=== PATIENT | female | born 1960 | race Caucasian/White ===

== ENCOUNTER 2016-06-07 16:05 | Emergency (ER) | payer MEDICAID, OTHER ==
[~2016-06-07] VITALS: Ht 175.3 cm; Wt 52.2 kg
[~2016-06-07 16:05] MED LIST: METH40TA13; NOR10T
[2016-06-07 19:05] LABS: Urine Bilirubin Negative (Negative); Urine Color Yellow (Yellow); Urine Glucose Normal (Normal); Urine Nitrite Negative (Negative); Urine RBC 2 /hpf (0 - 4); Urine Squamous Epithelial Cell FEW /hpf (<5); Urine pH 7.5 (5.0-8.0)
[2016-06-07 19:09] LABS: Urine Blood 2+ /uL (Negative); Urine Ketone 3+ (Negative)
[2016-06-07 21:50] LABS: Basophils # (auto) 0 uL; Basophils % (auto) 0.3 % (0.0-2.0); DEFINITIVE VIEW TRANSMISSION; Eosinophils # (auto) 0 uL; Hematocrit 45.8 % (36.0-46.0); Hemoglobin 15.5 g/dL (12.2-16.2); Lymphocytes # (auto) 1.2 uL; Lymphocytes % (auto) 12.5 % (10.0-50.0); Mean Corpuscular Hemoglobin 34.4 pg (28.0-32.0); Mean Corpuscular Hgb Conc. 33.8 g/dL (32.0-36.0); Mean Corpuscular Volume 101.8 fL (80.0-100.0); Mean Platelet Volume 8.6 fL (7.4-10.4); Monocytes # (auto) 1.2 uL; Monocytes % (auto) 12.7 % (0.0-12.0); Neutrophils # (auto) 6.9 uL; Neutrophils % (auto) 74.5 % (37.0-80.0); Platelet Count (auto) 136 10^3/uL (140-450); Red Cell Distribution Width 14.1 % (11.6-16.0); White Blood Cell 9.3 10^3/uL (4.4-10.8)
[2016-06-07 22:17] LABS: Albumin 4.5 g/dL (3.4-5.0); Bilirubin, Total 1.5 mg/dL (0.2-1.0); Calcium 9.5 mg/dL (8.5-10.1); Total Protein 8.7 g/dL (6.4-8.2)
[2016-06-07 22:23] LABS: Potassium 2.9 mmol/L (3.5-5.1)
[2016-06-08] MEDS ORDERED: ONDANSETRON HCL 4 MG/2 ML VIAL ONE (00:32)
[2016-06-08] MEDS ORDERED: SODIUM CHLORIDE 0.9% 1,000 ML IV ONE (00:45)
[2016-06-08] MEDS ORDERED: ONDANSETRON HCL 4 MG/2 ML VIAL IV ONE (00:45)
[2016-06-08] MEDS ORDERED: POTASSIUM CHL 20 Meq TABLET PO ONE (04:15)
[2016-06-08 04:25] VITALS: BP 109/76
== END 2016-06-08 04:27 | disposition home or self-care (01) ==
LOC: ER 16:09
DX: R56.9 Unspecified convulsions (principal); B19.20 Unspecified viral hepatitis C without hepatic coma; F17.210 Nicotine dependence, cigarettes, uncomplicated; F12.10 Cannabis abuse, uncomplicated; R42 Dizziness and giddiness
CPT/HCPCS: 36415; 70450; 80053; 81001; 82962; 83605; 85025; 93005; 96361; 96374; 99285; G0434; J2405; J7030

== ENCOUNTER 2017-03-01 22:33 | Observation (INO) | payer MEDICAID ==
[~2017-03-01] VITALS: Ht 162.6 cm; Wt 63.5 kg
[2017-03-01 23:13] LABS: Eosinophils # (auto) 0 uL; Hematocrit 40.8 % (36.0-46.0); Hemoglobin 14.1 g/dL (12.2-16.2); Mean Corpuscular Volume 104.3 fL (80.0-100.0); Monocytes # (auto) 0.5 uL; Red Blood Cells 3.91 10^6/uL (4.0-5.20); Red Cell Distribution Width 13.9 % (11.8-14.3); White Blood Cell 4.6 10^3/uL (4.4-10.8)
[2017-03-01 23:14] LABS: Basophils # (auto) 0.1 uL; Basophils % (auto) 1.1 % (0.0-2.0); Eosinophils % (auto) 0.2 % (0.0-7.0); Lymphocytes # (auto) 0.8 uL; Lymphocytes % (auto) 16.7 % (10.0-50.0); Mean Corpuscular Hemoglobin 36.2 pg (28.0-32.0); Mean Corpuscular Hgb Conc. 34.7 g/dL (32.0-36.0); Monocytes % (auto) 11.4 % (0.0-12.0); Neutrophils # (auto) 3.2 uL; Neutrophils % (auto) 70.6 % (37.0-80.0); Nucleated Red Blood Cells % 0.3 %; Platelet Count (auto) 161 10^3/uL (140-450)
[2017-03-01 23:26] LABS: INR 1.01 (0.9-1.15); Partial Thromboplastin Time 25.2 sec (22.64-33.71)
[2017-03-01 23:28] LABS: Albumin 4.5 g/dL (3.4-5.0); BUN/Creatinine Ratio 13.5; Calcium 9.3 mg/dL (8.5-10.1); Magnesium 1.5 mg/dL (1.6-2.6); Potassium 3.4 mmol/L (3.5-5.1)
[2017-03-01 23:39] LABS: Phenytoin (Dilantin) < 0.4 ug/mL (10-20); Valproic Acid (Depakene) 4 ug/mL (50-100)
[2017-03-02 00:09] LABS: Total Protein 8.2 g/dL (6.4-8.2)
[2017-03-02] MEDS ORDERED: ONDANSETRON HCL 4 MG/2 ML VIAL ONE (02:08)
[2017-03-02] MEDS ORDERED: ONDANSETRON HCL 4 MG/2 ML VIAL IV ONE ×2 (02:15→07:30)
[2017-03-02 04:56] LABS: Alcohol, Urine < 3.0 mg/dL (0-5); Amphetamine Screen, Urine NEGATIVE (NEGATIVE); Barbiturate Scree,Urine NEGATIVE (NEGATIVE); Benzodiazephine Screen, Urine NEGATIVE (NEGATIVE); Cannabinoid Screen, Urine POSITIVE (NEGATIVE); Cocaine Screen, Urine NEGATIVE (NEGATIVE); Opiate Scree,Urine NEGATIVE (NEGATIVE); Phencyclidine Screen, Urine NEGATIVE (NEGATIVE)
[2017-03-02 07:40] VITALS: BP 149/82
[2017-03-02] MEDS ORDERED: ACETAMINOPHEN 500 MG TAB PO ONE (07:45)
[2017-03-02] MEDS ORDERED: POTASSIUM CHL 10% (20 MEQ/15ML) 15ml ORAL SOLN PO ONE (08:30)
== END 2017-03-02 08:49 | disposition home or self-care (01) | DRG 53 ==
LOC: EDBD 22:33 → ER 22:37 → OVERFLOW 22:51 → ER 03-02 08:49
PROVIDERS: ADMIT Emergency Medicine; ATTEND Emergency Medicine
DX: R56.9 Unspecified convulsions (principal); D89.9 Disorder involving the immune mechanism, unspecified; E72.51 Non-ketotic hyperglycinemia; E83.42 Hypomagnesemia; E87.6 Hypokalemia; F17.210 Nicotine dependence, cigarettes, uncomplicated; F12.10 Cannabis abuse, uncomplicated; Z82.49 Family history of ischemic heart disease and other diseases of the circulatory system
CPT/HCPCS: 36415; 70450; 80053; 80164; 80185; 80307; 80320; 83735; 85025; 85610; 85730; 93005; 96374; 96376; 99285; G0378; J2405

== ENCOUNTER 2017-11-27 08:35 | Emergency (ER) | payer MEDICAID ==
[~2017-11-27] VITALS: Ht 175.3 cm; Wt 59.0 kg
[2017-11-27] MEDS ORDERED: LORazepam 0.5 MG TAB PO ONE (08:45)
[2017-11-27] MEDS ORDERED: METHADONE HCL 10 MG TAB PO ONE (08:45)
[2017-11-27 09:33] VITALS: BP 127/87
[2017-11-27 10:04] LABS: Basophils # (auto) 0 uL; Basophils % (auto) 0.3 % (0.0-2.0); Eosinophils # (auto) 0 uL; Hemoglobin 14.4 g/dL (12.2-16.2); Mean Corpuscular Hgb Conc. 33.7 g/dL (32.0-36.0); Monocytes # (auto) 0.3 uL; Nucleated Red Blood Cells % 0.1 %; Platelet Count (auto) 146 10^3/uL (140-450)
[2017-11-27 10:06] LABS: Hematocrit 42.6 % (36.0-46.0); Lymphocytes # (auto) 0.5 uL; Mean Corpuscular Hemoglobin 35.2 pg (28.0-32.0); Mean Corpuscular Volume 104.3 fL (80.0-100.0); Neutrophils # (auto) 4.3 uL; Neutrophils % (auto) 84.7 % (37.0-80.0); Red Blood Cells 4.08 10^6/uL (4.0-5.20); Red Cell Distribution Width 13.9 % (11.8-14.3)
[2017-11-27 10:27] LABS: Albumin 4.4 g/dL (3.4-5.0); BUN/Creatinine Ratio 18.4; Bilirubin, Total 0.9 mg/dL (0.2-1.0); Calcium 9.2 mg/dL (8.5-10.1); Potassium 3.1 mmol/L (3.5-5.1); Total Protein 8.3 g/dL (6.4-8.2)
[2017-11-27] MEDS ORDERED: POTASSIUM EFFERVESENT TAB 25 MEQ PO ONE (11:45)
== END 2017-11-27 12:54 | disposition home or self-care (01) ==
LOC: ER 08:35 → EDBD 08:35 → ER 12:54
DX: R56.9 Unspecified convulsions (principal); F17.210 Nicotine dependence, cigarettes, uncomplicated
CPT/HCPCS: 36415; 70450; 80053; 85025; 94761; 99285; J7030

== ENCOUNTER 2018-02-26 09:46 | Emergency (ER) | payer MEDICAID ==
[~2018-02-26] VITALS: Ht 175.3 cm; Wt 52.2 kg
[2018-02-26 09:48] VITALS: BP 134/81
== END 2018-02-26 11:12 | disposition home or self-care (01) ==
LOC: ER 09:46
DX: S61.501D Unspecified open wound of right wrist, subsequent encounter (principal); F17.210 Nicotine dependence, cigarettes, uncomplicated; Z88.2 Allergy status to sulfonamides; Z79.899 Other long term (current) drug therapy; Z90.49 Acquired absence of other specified parts of digestive tract; X58.XXXD Exposure to other specified factors, subsequent encounter

== ENCOUNTER 2018-03-21 17:28 | Emergency (ER) | payer MEDICAID ==
[~2018-03-21] VITALS: Ht 170.2 cm; Wt 54.4 kg
[2018-03-21 18:23] LABS: Basophils # (auto) 0 uL; Basophils % (auto) 0.5 % (0.0-2.0); Eosinophils # (auto) 0 uL; Hemoglobin 15.4 g/dL (12.2-16.2); Lymphocytes # (auto) 0.4 uL; Monocytes # (auto) 0.4 uL; Neutrophils # (auto) 4.5 uL; Nucleated Red Blood Cells % 0.1 %
[2018-03-21 18:25] LABS: Lymphocytes % (auto) 7.7 % (10.0-50.0); Mean Corpuscular Hemoglobin 36.6 pg (28.0-32.0); Mean Corpuscular Hgb Conc. 34.2 g/dL (32.0-36.0); Mean Corpuscular Volume 106.8 fL (80.0-100.0); Monocytes % (auto) 7.2 % (0.0-12.0); Neutrophils % (auto) 84.6 % (37.0-80.0); Platelet Count (auto) 131 10^3/uL (140-450); Red Blood Cells 4.21 10^6/uL (4.0-5.20); Red Cell Distribution Width 14.8 % (11.8-14.3); White Blood Cell 5.3 10^3/uL (4.4-10.8)
[2018-03-21 18:38] LABS: Albumin 4.4 g/dL (3.4-5.0); Potassium 3.1 mmol/L (3.5-5.1)
[2018-03-21 18:43] LABS: BUN/Creatinine Ratio 16.7; Bilirubin, Total 1.1 mg/dL (0.2-1.0); Total Protein 7.7 g/dL (6.4-8.2)
[2018-03-21] MEDS ORDERED: POTASSIUM CHL 20 Meq TABLET PO ONE (19:45)
[2018-03-21] MEDS ORDERED: ACETAMINOPHEN 325 MG TAB PO ONE (19:45)
[2018-03-21 21:01] VITALS: BP 137/55
== END 2018-03-21 21:40 | disposition home or self-care (01) ==
LOC: EDBD 17:28 → ER 17:28
DX: R56.9 Unspecified convulsions (principal); R94.5 Abnormal results of liver function studies; F17.210 Nicotine dependence, cigarettes, uncomplicated; F12.10 Cannabis abuse, uncomplicated; Z90.89 Acquired absence of other organs
CPT/HCPCS: 36415; 70450; 71045; 80053; 85025; 93005; 94761

== ENCOUNTER 2018-05-20 19:06 | Emergency (ER) | payer MEDICAID ==
[~2018-05-20] VITALS: Ht 167.6 cm; Wt 59.9 kg
[2018-05-20] MEDS ORDERED: SODIUM CHLORIDE 0.9% 1,000 ML IVB ONE (19:26)
[2018-05-20] MEDS ORDERED: LORazepam 2MG/ML-1ML VIAL IV ONE (21:45)
[2018-05-20] MEDS ORDERED: MULTIPLE VITAMIN 10 ML, MAGNESIUM SULF SDV 50% 8 MEQ in SODIUM CHLORIDE 0.9% 1,000 ML IV ONE (21:45)
[2018-05-20 22:14] VITALS: BP 112/75
[2018-05-20 22:26] LABS: Mean Corpuscular Hemoglobin 35.7 pg (28.0-32.0)
[2018-05-20 22:28] LABS: Hematocrit 44.7 % (36.0-46.0); Hemoglobin 15.2 g/dL (12.2-16.2); Mean Corpuscular Volume 105.1 fL (80.0-100.0); Platelet Count (auto) 259 10^3/uL (140-450); Red Blood Cells 4.26 10^6/uL (4.0-5.20); White Blood Cell 6.7 10^3/uL (4.4-10.8)
[2018-05-20 22:34] LABS: Band Neutrophils % (manual) 0; Basophils % (manual) 0 (0.0-2.0); Blast Cells 0; Metamyelocytes % 0; Myelocytes % 0; Promyelocytes % 0; Reactive Lymphocytes 0
[2018-05-20 22:43] LABS: Calcium 8.8 mg/dL (8.5-10.1); Potassium 3.5 mmol/L (3.5-5.1)
[2018-05-20 22:46] LABS: BUN/Creatinine Ratio 19.7; Bilirubin, Total 0.3 mg/dL (0.2-1.0)
[2018-05-20 23:44] LABS: Eosinophils % (manual) 2 (0-7); Lymphocytes % (manual) 58 (10.0-50.0); Monocytes % (manual) 9 (0-12)
== END 2018-05-21 01:22 | disposition home or self-care (01) ==
LOC: EDBD 19:06 → ER 19:09
DX: F10.129 Alcohol abuse with intoxication, unspecified (principal); F17.210 Nicotine dependence, cigarettes, uncomplicated; Z88.2 Allergy status to sulfonamides; Y90.9 Presence of alcohol in blood, level not specified
CPT/HCPCS: 36415; 80053; 80320; 85007; 85027; 96365; 96366; 96375; 99283; J2060; J3475; J7030

== ENCOUNTER 2018-11-10 10:05 | Emergency (ER) | payer MEDICAID ==
[~2018-11-10] VITALS: Ht 167.6 cm; Wt 63.5 kg
[2018-11-10 10:43] LABS: Hematocrit 39.4 % (36.0-46.0); Hemoglobin 13.4 g/dL (12.2-16.2); Red Cell Distribution Width 14.9 % (11.8-14.3)
[2018-11-10 10:45] LABS: Mean Corpuscular Hemoglobin 34.4 pg (28.0-32.0); Platelet Count (auto) 211 10^3/uL (140-450); White Blood Cell 5.5 10^3/uL (4.4-10.8)
[2018-11-10 10:51] LABS: Band Neutrophils % (manual) 0
[2018-11-10 10:53] LABS: Basophils % (manual) 0 (0.0-2.0); Blast Cells 0; Metamyelocytes % 0; Myelocytes % 0; Promyelocytes % 0
[2018-11-10 11:01] LABS: Albumin 4.9 g/dL (3.4-5.0); BUN/Creatinine Ratio 18.9; Calcium 8.9 mg/dL (8.5-10.1); Potassium 3.4 mmol/L (3.5-5.1)
[2018-11-10 11:05] LABS: Bilirubin, Total 0.4 mg/dL (0.2-1.0); Total Protein 8.4 g/dL (6.4-8.2)
[2018-11-10] MEDS ORDERED: LORazepam 2MG/ML-1ML VIAL IV ONE (11:15)
[2018-11-10 11:30] LABS: Amphetamine Screen, Urine NEGATIVE (NEGATIVE); Barbiturate Scree,Urine NEGATIVE (NEGATIVE); Benzodiazephine Screen, Urine NEGATIVE (NEGATIVE); Cannabinoid Screen, Urine POSITIVE (NEGATIVE); Cocaine Screen, Urine NEGATIVE (NEGATIVE); Opiate Scree,Urine NEGATIVE (NEGATIVE); Phencyclidine Screen, Urine NEGATIVE (NEGATIVE)
[2018-11-10 11:40] LABS: Urine Bacteria FEW /hpf (None Seen); Urine Blood Negative /uL (Negative); Urine Mucus FEW (None Seen); Urine Specific Gravity 1.013 (1.001-1.035); Urine WBC 13 /hpf (0 - 5)
[2018-11-10] MEDS ORDERED: SODIUM CHLORIDE 0.9% 1,000 ML IV ONE ×2 (12:12)
[2018-11-10] MEDS ORDERED: POTASSIUM EFFERVESENT TAB 25 MEQ PO ONE (12:15)
[2018-11-10] MEDS ORDERED: THIAMINE 100mg/ml INJ (200mg/2ml VIAL) IV ONE (12:15)
[2018-11-10 13:37] VITALS: BP 113/66
[2018-11-10 13:41] LABS: Lymphocytes % (manual) 57 (10.0-50.0)
[2018-11-10 13:42] LABS: Eosinophils % (manual) 3 (0-7); Monocytes % (manual) 7 (0-12); Reactive Lymphocytes 5
== END 2018-11-10 15:24 | disposition home or self-care (01) ==
LOC: ER 10:05 → EDBD 10:05 → ER 15:24
DX: F11.988 Opioid use, unspecified with other opioid-induced disorder (principal); F10.129 Alcohol abuse with intoxication, unspecified; N39.0 Urinary tract infection, site not specified; J44.9 Chronic obstructive pulmonary disease, unspecified; F17.210 Nicotine dependence, cigarettes, uncomplicated; F12.90 Cannabis use, unspecified, uncomplicated; Z88.2 Allergy status to sulfonamides; Z79.899 Other long term (current) drug therapy; Z90.49 Acquired absence of other specified parts of digestive tract
CPT/HCPCS: 36415; 71045; 80053; 80307; 81001; 85007; 85027; 93005; 96374; 96375; 99284; J2060; J3411; J7030

== ENCOUNTER 2020-08-11 14:44 | Emergency (ER) | payer MEDICAID ==
[~2020-08-11] VITALS: Ht 177.8 cm; Wt 52.2 kg
[~2020-08-11 14:44] MED LIST changes: +ACET500T48 PO; +ENO40SY SC; +FOLI1TAB6 PO; +HYDR-4072 PO; -NOR10T; +THIA100T10 PO
[2020-08-11] MEDS ORDERED: SODIUM CHLORIDE 0.9% 1,000 ML IV ONE (15:15)
[2020-08-11 16:03] LABS: Basophils # (auto) 0 10 ^3/uL (0-0.2); Eosinophils # (auto) 0 10 ^3/uL (0-0.8); Hematocrit 34.8 % (36.0-46.0); Hemoglobin 12.4 g/dL (12.2-16.2); Lymphocytes # (auto) 0.4 10 ^3/uL (0.4-5.4); Monocytes # (auto) 0.4 10 ^3/uL (0-1.3); Neutrophils # (auto) 5.7 10 ^3/uL (1.6-8.6); White Blood Cell 6.5 10^3/uL (4.4-10.8)
[2020-08-11 16:05] LABS: Basophils % (auto) 0.2 % (0.0-2.0); Lymphocytes % (auto) 5.5 % (10.0-50.0); Mean Corpuscular Hemoglobin 36.8 pg (28.0-32.0); Mean Corpuscular Hgb Conc. 35.6 g/dL (32.0-36.0); Mean Corpuscular Volume 103.4 fL (80.0-100.0); Neutrophils % (auto) 88.3 % (37.0-80.0); Platelet Count (auto) 135 10^3/uL (140-450); Red Blood Cells 3.37 10^6/uL (4.0-5.20); Red Cell Distribution Width 15.2 % (11.8-14.3)
[2020-08-11 16:16] VITALS: BP 131/75
[2020-08-11 16:18] LABS: Albumin 4.1 g/dL (3.4-5.0); Anion Gap 11 (5-15); Blood Urea Nitrogen 13 mg/dL (7-18); Calcium 8.8 mg/dL (8.5-10.1); Carbon Dioxide 26 mmol/L (21-32); Chloride 97 mmol/L (98-107); Glucose 159 mg/dL (74-106); Potassium 3.4 mmol/L (3.5-5.1); Sodium 134 mmol/L (136-145)
[2020-08-11 16:22] LABS: Alanine Aminotransferase 65 U/L (13-56); Alkaline Phosphatase 63 U/L (45-117); Aspartate Aminotransferase 95 U/L (15-37); BUN/Creatinine Ratio 23.6; Bilirubin, Total 0.8 mg/dL (0.2-1.0); GFR African American 145 mL/min; GFR Non-African American 120 mL/min; Total Protein 7.1 g/dL (6.4-8.2)
[2020-08-11 18:00] LABS: Urine Bacteria FEW /hpf (None Seen); Urine Blood Negative /uL (Negative); Urine Hyaline Cast FEW /lpf (0 - 2); Urine Mucus FEW (None Seen); Urine Specific Gravity 1.018 (1.001-1.035)
[2020-08-11 18:04] LABS: Urine WBC None Seen /hpf (0 - 5)
== END 2020-08-11 18:41 | disposition home or self-care (01) ==
LOC: EDBD 14:44 → ER 14:44
DX: R73.9 Hyperglycemia, unspecified (principal); F19.90 Other psychoactive substance use, unspecified, uncomplicated; F17.210 Nicotine dependence, cigarettes, uncomplicated; Z90.49 Acquired absence of other specified parts of digestive tract
CPT/HCPCS: 36415; 70450; 80053; 81001; 84484; 85025; 93005; 96360; 96361; 99285; J7030

== ENCOUNTER 2021-08-15 20:10 | Emergency (ER) | payer MEDICAID ==
[~2021-08-15] VITALS: Ht 165.1 cm; Wt 54.4 kg
[2021-08-15 20:27] VITALS: BP 125/76
== END 2021-08-15 20:59 | disposition home or self-care (01) ==
LOC: EDBD 20:10 → EDUNIT# 20:10 → ER 20:12
DX: M25.561 Pain in right knee (principal); J44.9 Chronic obstructive pulmonary disease, unspecified; F12.10 Cannabis abuse, uncomplicated; R64 Cachexia; I10 Essential (primary) hypertension; F17.210 Nicotine dependence, cigarettes, uncomplicated; Z68.20 Body mass index [BMI] 20.0-20.9, adult; Z88.2 Allergy status to sulfonamides

== ENCOUNTER 2021-08-24 08:10 | Emergency (ER) | payer MEDICAID ==
[~2021-08-24] VITALS: Ht 167.6 cm; Wt 47.6 kg
[2021-08-24] MEDS ORDERED: ONDANSETRON ODT 4 MG TAB PO ONE (08:15)
[2021-08-24] MEDS ORDERED: IBUPROFEN 600 MG TAB PO ONE (08:15)
[2021-08-24] MEDS ORDERED: ONDA-144 PO (08:56)
[2021-08-24 09:28] VITALS: BP 117/51
== END 2021-08-24 09:29 | disposition home or self-care (01) ==
LOC: EDUNIT# 08:10 → ER 08:10 → EDBD 08:10 → ER 09:29
DX: M79.10 Myalgia, unspecified site (principal); R94.31 Abnormal electrocardiogram [ECG] [EKG]
CPT/HCPCS: 93005; 99283; Q0162

== ENCOUNTER 2021-08-25 16:01 | Emergency (ER) | payer MEDICAID ==
[~2021-08-25] VITALS: Ht 175.3 cm; Wt 45.4 kg
[~2021-08-25 16:01] MED LIST changes: +ONDA-144 PO
[2021-08-25 16:19] VITALS: BP 134/76
[2021-08-25] MEDS ORDERED: LORazepam 2MG/ML-1ML VIAL IV ONE (16:30)
[2021-08-25] MEDS ORDERED: KETOROLAC TROMETH 30 MG/ML 1ML VIAL IV ONE (16:30)
[2021-08-25 16:49] LABS: Basophils # (auto) 0.1 10 ^3/uL (0-0.2); Basophils % (auto) 1.3 % (0.0-2.0); Eosinophils # (auto) 0.1 10 ^3/uL (0-0.8); Eosinophils % (auto) 1.6 % (0.0-7.0); Hemoglobin 12.4 g/dL (12.2-16.2); Lymphocytes # (auto) 1.8 10 ^3/uL (0.4-5.4); Lymphocytes % (auto) 34.8 % (10.0-50.0); Mean Corpuscular Hemoglobin 38.1 pg (28.0-32.0); Mean Corpuscular Hgb Conc. 35.3 g/dL (32.0-36.0); Mean Corpuscular Volume 107.8 fL (80.0-100.0); Monocytes # (auto) 0.7 10 ^3/uL (0-1.3); Monocytes % (auto) 12.4 % (0.0-12.0); Neutrophils # (auto) 2.6 10 ^3/uL (1.6-8.6); Neutrophils % (auto) 49.9 % (37.0-80.0); Nucleated Red Blood Cells % 0.3 %; Red Blood Cells 3.25 10^6/uL (4.0-5.20); Red Cell Distribution Width 12.7 % (11.8-14.3); White Blood Cell 5.3 10^3/uL (4.4-10.8)
[2021-08-25 17:09] LABS: Albumin 4.5 g/dL (3.4-5.0); BUN/Creatinine Ratio 21.2; Calcium 8.7 mg/dL (8.5-10.1); Potassium 3.6 mmol/L (3.5-5.1)
[2021-08-25 17:10] LABS: INR 1.02 (0.9-1.15); Partial Thromboplastin Time 25.2 sec (23.6-33.0)
[2021-08-25 17:14] LABS: Bilirubin, Total 0.5 mg/dL (0.2-1.0); Total Protein 8.3 g/dL (6.4-8.2)
== END 2021-08-25 23:47 | disposition left against medical advice (07) ==
LOC: EDBD 16:01 → ER 16:01
DX: S93.602A Unspecified sprain of left foot, initial encounter (principal); F10.10 Alcohol abuse, uncomplicated; I10 Essential (primary) hypertension; E11.9 Type 2 diabetes mellitus without complications; J44.9 Chronic obstructive pulmonary disease, unspecified; F17.210 Nicotine dependence, cigarettes, uncomplicated; Z90.49 Acquired absence of other specified parts of digestive tract; Z79.899 Other long term (current) drug therapy; Z88.2 Allergy status to sulfonamides; X58.XXXA Exposure to other specified factors, initial encounter; Y93.89 Activity, other specified; Y92.89 Other specified places as the place of occurrence of the external cause; Y99.8 Other external cause status; Y90.8 Blood alcohol level of 240 mg/100 ml or more
CPT/HCPCS: 36415; 71045; 73630; 80053; 80320; 83880; 84484; 85025; 85610; 85730

== ENCOUNTER 2021-09-11 17:51 | Inpatient (IN) | payer MEDICAID ==
[~2021-09-11] VITALS: Ht 157.5 cm; Wt 61.2 kg
[2021-09-11] MEDS ORDERED: NOREPINEPHRINE 8 MG/250ML KIT 250 ML IV ONE (18:42)
[2021-09-11] MEDS: NOREPINEPHRINE 8 MG/250ML KIT 250 ML IV SCH ×3 (18:49→22:02)
[2021-09-11 19:10] LABS: Hematocrit 23.9 % (36.0-46.0); Mean Corpuscular Hemoglobin 36.4 pg (28.0-32.0); Mean Corpuscular Hgb Conc. 33.6 g/dL (32.0-36.0); Mean Corpuscular Volume 108.4 fL (80.0-100.0); Red Blood Cells 2.21 10^6/uL (4.0-5.20); White Blood Cell 6.9 10^3/uL (4.4-10.8)
[2021-09-11 19:15] LABS: Band Neutrophils % (manual) 0; Basophils % (manual) 0 (0.0-2.0); Blast Cells 0; Eosinophils % (manual) 0 (0-7); Metamyelocytes % 0; Myelocytes % 0; Promyelocytes % 0; Reactive Lymphocytes 0
[2021-09-11 19:21] LABS: Calcium 7.5 mg/dL (8.5-10.1)
[2021-09-11 19:27] LABS: Albumin 3.1 g/dL (3.4-5.0); BUN/Creatinine Ratio 16.4; Bilirubin, Total 1.2 mg/dL (0.2-1.0); Magnesium 2.1 mg/dL (1.6-2.6); Total Protein 6.8 g/dL (6.4-8.2)
[2021-09-11] MEDS ORDERED: THIAMINE 100mg/ml INJ (200mg/2ml VIAL) IV ONE (19:30)
[2021-09-11] MEDS ORDERED: SODIUM CHLORIDE 0.9% 1,000 ML IV ONE ×2 (19:30)
[2021-09-11 19:57] LABS: Lymphocytes % (manual) 10 (10.0-50.0); Monocytes % (manual) 18 (0-12)
[2021-09-11] MEDS: SODIUM CHLORIDE 0.9% 1,000 ML IV SCH (22:03)
[2021-09-11 22:40] LABS: Urine Bacteria FEW /hpf (None Seen); Urine Blood 3+ /uL (Negative); Urine Hyaline Cast MOD /lpf (0 - 2); Urine Mucus FEW (None Seen); Urine Specific Gravity 1.014 (1.001-1.035); Urine WBC 1 /hpf (0 - 5)
[2021-09-11 22:47] LABS: Amphetamine Screen, Urine NEGATIVE (NEGATIVE); Barbiturate Scree,Urine NEGATIVE (NEGATIVE); Benzodiazephine Screen, Urine NEGATIVE (NEGATIVE); Cannabinoid Screen, Urine POSITIVE (NEGATIVE); Cocaine Screen, Urine NEGATIVE (NEGATIVE); Opiate Scree,Urine POSITIVE (NEGATIVE)
[2021-09-11 22:55] LABS: Phencyclidine Screen, Urine NEGATIVE (NEGATIVE)
[2021-09-12 05:45] VITALS: BP 117/63
[2021-09-12 06:06] LABS: Hematocrit 24.2 % (36.0-46.0); Hemoglobin 8.3 g/dL (12.2-16.2); Red Cell Distribution Width 12.9 % (11.8-14.3)
[2021-09-12] MEDS: SODIUM CHLORIDE 0.9% 1,000 ML IV SCH ×2 (06:07→17:52)
[2021-09-12 06:09] LABS: Mean Corpuscular Hemoglobin 36.6 pg (28.0-32.0); Mean Corpuscular Hgb Conc. 34.3 g/dL (32.0-36.0); Mean Corpuscular Volume 106.8 fL (80.0-100.0); Red Blood Cells 2.27 10^6/uL (4.0-5.20); White Blood Cell 6.3 10^3/uL (4.4-10.8)
[2021-09-12 06:13] LABS: Band Neutrophils % (manual) 0; Basophils % (manual) 0 (0.0-2.0); Blast Cells 0; Eosinophils % (manual) 0 (0-7); Metamyelocytes % 0; Promyelocytes % 0; Reactive Lymphocytes 0
[2021-09-12 06:21] LABS: Potassium 3.3 mmol/L (3.5-5.1)
[2021-09-12 06:29] LABS: Albumin 3.2 g/dL (3.4-5.0); BUN/Creatinine Ratio 29.3; Bilirubin, Total 1.7 mg/dL (0.2-1.0); Calcium 8.1 mg/dL (8.5-10.1); Total Protein 7.2 g/dL (6.4-8.2)
[2021-09-12 08:17] LABS: Lymphocytes % (manual) 9 (10.0-50.0); Monocytes % (manual) 17 (0-12); Myelocytes % 1
[2021-09-12] MEDS ORDERED: ENOXAPARIN SOD 30 MG/0.3 ML SYRINGE SC SCH (10:00)
[2021-09-12] MEDS ORDERED: FOLIC ACID 1 MG, MULTIPLE VITAMIN 10 ML, THIAMINE INJ 100 MG in D5W/SOD CHL 0.45% 1,000 ML INJ SCH (12:00)
[2021-09-13] MEDS ORDERED: PANTOPRAZOLE 40 MG/10 ML VIAL INJ IV SCH (10:00)
== END 2021-09-12 19:12 | disposition left against medical advice (07) | DRG 207 ==
LOC: ER 17:51 → EDBD 17:51 → TELE 21:43
PROVIDERS: ADMIT Internal Medicine; ATTEND Nurse Practitioner
DX: I95.9 Hypotension, unspecified (principal); N17.0 Acute kidney failure with tubular necrosis; G92.8 Other toxic encephalopathy; D63.8 Anemia in other chronic diseases classified elsewhere; F10.10 Alcohol abuse, uncomplicated; Z53.29 Procedure and treatment not carried out because of patient's decision for other reasons; Z20.822 Contact with and (suspected) exposure to COVID-19; I10 Essential (primary) hypertension; F17.210 Nicotine dependence, cigarettes, uncomplicated; E11.9 Type 2 diabetes mellitus without complications; E87.6 Hypokalemia; J44.9 Chronic obstructive pulmonary disease, unspecified; Z88.2 Allergy status to sulfonamides; Z88.8 Allergy status to other drugs, medicaments and biological substances; Z90.49 Acquired absence of other specified parts of digestive tract; Z86.19 Personal history of other infectious and parasitic diseases
CPT/HCPCS: 36415; 70450; 71045; 80053; 80307; 80320; 81001; 82140; 83735; 84484; 85007; 85027; 93005; 93306; 96361; 96365; 96375; 99291; G0378

== ENCOUNTER 2021-11-05 11:33 | Emergency (ER) | payer MEDICAID ==
[~2021-11-05] VITALS: Ht 175.3 cm; Wt 61.0 kg
[2021-11-05] MEDS ORDERED: HYDROmorphone HCL 2 MG/ML VL/or syr IV ONE (13:30)
[2021-11-05 14:00] VITALS: BP 118/80
[2021-11-05] MEDS ORDERED: HYDROmorphone HCL 2 MG/ML VL/or syr IM ONE (14:45)
== END 2021-11-05 15:08 | disposition left against medical advice (07) ==
LOC: ER 11:33 → EDBD 11:33 → ER 15:08
DX: M25.511 Pain in right shoulder (principal); E11.9 Type 2 diabetes mellitus without complications; I10 Essential (primary) hypertension; J44.9 Chronic obstructive pulmonary disease, unspecified; F17.210 Nicotine dependence, cigarettes, uncomplicated; Z90.89 Acquired absence of other organs; Z88.2 Allergy status to sulfonamides; Z53.29 Procedure and treatment not carried out because of patient's decision for other reasons; W19.XXXA Unspecified fall, initial encounter; Y93.89 Activity, other specified; Y92.89 Other specified places as the place of occurrence of the external cause; Y99.8 Other external cause status
CPT/HCPCS: 73200; 73700; 96372; 99284; J1170

== ENCOUNTER 2021-12-27 02:01 | Inpatient (IN) | payer MEDICAID ==
[~2021-12-27] VITALS: Ht 165.1 cm; Wt 52.0 kg
[2021-12-27 04:54] LABS: Eosinophils # (auto) 0.1 10 ^3/uL (0-0.8); Lymphocytes # (auto) 2.2 10 ^3/uL (0.4-5.4); Neutrophils # (auto) 1.3 10 ^3/uL (1.6-8.6); Nucleated Red Blood Cells % 0.1 %
[2021-12-27 04:56] LABS: Basophils # (auto) 0 10 ^3/uL (0-0.2); Basophils % (auto) 1.1 % (0.0-2.0); Hematocrit 37.9 % (36.0-46.0); Hemoglobin 13.3 g/dL (12.2-16.2); Lymphocytes % (auto) 53.5 % (10.0-50.0); Mean Corpuscular Hemoglobin 38.1 pg (28.0-32.0); Mean Corpuscular Hgb Conc. 35.1 g/dL (32.0-36.0); Mean Corpuscular Volume 108.7 fL (80.0-100.0); Monocytes # (auto) 0.5 10 ^3/uL (0-1.3); Monocytes % (auto) 11.1 % (0.0-12.0); Neutrophils % (auto) 31.3 % (37.0-80.0); Red Blood Cells 3.48 10^6/uL (4.0-5.20); Red Cell Distribution Width 13.7 % (11.8-14.3); White Blood Cell 4.1 10^3/uL (4.4-10.8)
[2021-12-27 05:12] LABS: Salicylate 3.3 mg/dL (2.8-20.0)
[2021-12-27 05:14] LABS: Albumin 4.1 g/dL (3.4-5.0); Calcium 8.9 mg/dL (8.5-10.1); Potassium 3.7 mmol/L (3.5-5.1)
[2021-12-27 05:17] LABS: BUN/Creatinine Ratio 18.4; Magnesium 1.7 mg/dL (1.6-2.6)
[2021-12-27 05:37] LABS: Bilirubin, Total 0.3 mg/dL (0.2-1.0); Total Protein 7.8 g/dL (6.4-8.2)
[2021-12-27 05:53] LABS: Acetaminophen < 2.0 ug/mL (10-30)
[2021-12-27 06:21] LABS: INR 0.99 (0.9-1.15); Partial Thromboplastin Time 24.8 sec (24.6-33.4)
[2021-12-27] MEDS ORDERED: LORazepam 2MG/ML-1ML VIAL ONE (19:24)
[2021-12-27 20:03] LABS: Basophils # (auto) 0.1 10 ^3/uL (0-0.2); Basophils % (auto) 0.9 % (0.0-2.0); Eosinophils # (auto) 0 10 ^3/uL (0-0.8); Eosinophils % (auto) 0.2 % (0.0-7.0); Neutrophils # (auto) 3.3 10 ^3/uL (1.6-8.6); Nucleated Red Blood Cells % 0.2 %; Red Cell Distribution Width 13.8 % (11.8-14.3)
[2021-12-27 20:05] LABS: Hematocrit 39.9 % (36.0-46.0); Mean Corpuscular Hemoglobin 36.7 pg (28.0-32.0); Mean Corpuscular Hgb Conc. 32.7 g/dL (32.0-36.0); Mean Corpuscular Volume 112.4 fL (80.0-100.0); Monocytes % (auto) 13.8 % (0.0-12.0); Neutrophils % (auto) 45.1 % (37.0-80.0); Red Blood Cells 3.55 10^6/uL (4.0-5.20); White Blood Cell 7.4 10^3/uL (4.4-10.8)
[2021-12-27 20:16] LABS: Albumin 4.5 g/dL (3.4-5.0); BUN/Creatinine Ratio 14.5; Calcium 9.5 mg/dL (8.5-10.1); Potassium 3.6 mmol/L (3.5-5.1)
[2021-12-27 20:19] LABS: Bilirubin, Total 0.6 mg/dL (0.2-1.0); Total Protein 8.5 g/dL (6.4-8.2)
[2021-12-27] MEDS ORDERED: LORazepam 2MG/ML-1ML VIAL IM ONE (20:30)
[2021-12-27] MEDS ORDERED: LORazepam 2MG/ML-1ML VIAL IV PRN (23:15)
[2021-12-27] MEDS ORDERED: chlordiazePOXIDE HCL 25 MG CAP PO PRN (23:15)
[2021-12-27] MEDS ORDERED: PANTOPRAZOLE 40 MG/10 ML VIAL INJ IV ONE (23:15)
[2021-12-27] MEDS ORDERED: ONDANSETRON HCL 4 MG/2 ML VIAL IV PRN (23:15)
[2021-12-28] MEDS: SODIUM CHLORIDE 0.9% 1,000 ML IV SCH ×2 (00:09→09:17)
[2021-12-28 04:24] LABS: Basophils # (auto) 0 10 ^3/uL (0-0.2); Basophils % (auto) 0.6 % (0.0-2.0); Eosinophils # (auto) 0 10 ^3/uL (0-0.8); Lymphocytes # (auto) 1.3 10 ^3/uL (0.4-5.4); Neutrophils # (auto) 5.4 10 ^3/uL (1.6-8.6); Red Cell Distribution Width 13.6 % (11.8-14.3); White Blood Cell 7.6 10^3/uL (4.4-10.8)
[2021-12-28 04:26] LABS: Eosinophils % (auto) 0.4 % (0.0-7.0); Hemoglobin 12.9 g/dL (12.2-16.2); Lymphocytes % (auto) 17.1 % (10.0-50.0); Mean Corpuscular Hemoglobin 36.9 pg (28.0-32.0); Mean Corpuscular Volume 108.4 fL (80.0-100.0); Monocytes # (auto) 0.8 10 ^3/uL (0-1.3); Monocytes % (auto) 10.7 % (0.0-12.0); Neutrophils % (auto) 71.2 % (37.0-80.0); Nucleated Red Blood Cells % 0.2 %
[2021-12-28 04:38] LABS: Albumin 4.3 g/dL (3.4-5.0); Calcium 9.3 mg/dL (8.5-10.1); Potassium 3.4 mmol/L (3.5-5.1)
[2021-12-28 04:44] LABS: Bilirubin, Total 0.8 mg/dL (0.2-1.0); Total Protein 7.5 g/dL (6.4-8.2)
[2021-12-28] MEDS ORDERED: PANTOPRAZOLE 40 MG/10 ML VIAL INJ IV SCH (10:00)
[2021-12-28] MEDS ORDERED: ENOXAPARIN SOD 40 MG/0.4 ML SYRINGE SC SCH (10:00)
[2021-12-28] MEDS ORDERED: NICOTINE 14 MG/24HR TOPICAL PATCH TD ONE (11:45)
[2021-12-28] MEDS ORDERED: FOLIC ACID 1 MG, MULTIPLE VITAMIN 10 ML, MAGNESIUM SULF SDV 50% 8 MEQ, THIAMINE INJ 100... INJ SCH ×5 (12:00)
[2021-12-28 12:15] VITALS: BP 131/84
== END 2021-12-28 13:15 | disposition left against medical advice (07) | DRG 770 ==
LOC: EDUNIT# 02:01 → EDBD 02:01 → ER 02:04 → OVERFLOW 23:22
PROVIDERS: ADMIT Nurse Practitioner Family; ATTEND Hospitalist
DX: F10.229 Alcohol dependence with intoxication, unspecified (principal); R45.851 Suicidal ideations; R56.9 Unspecified convulsions; Z91.199 Patient's noncompliance with other medical treatment and regimen due to unspecified reason; F43.20 Adjustment disorder, unspecified; E11.65 Type 2 diabetes mellitus with hyperglycemia; Y90.8 Blood alcohol level of 240 mg/100 ml or more; Z53.29 Procedure and treatment not carried out because of patient's decision for other reasons; F17.210 Nicotine dependence, cigarettes, uncomplicated; J44.9 Chronic obstructive pulmonary disease, unspecified; Z20.822 Contact with and (suspected) exposure to COVID-19; I10 Essential (primary) hypertension; F32.A Depression, unspecified; R74.01 Elevation of levels of liver transaminase levels; Z90.49 Acquired absence of other specified parts of digestive tract; Z86.73 Personal history of transient ischemic attack (TIA), and cerebral infarction without residual deficits; Z88.2 Allergy status to sulfonamides; Z88.8 Allergy status to other drugs, medicaments and biological substances
CPT/HCPCS: 36415; 70450; 71045; 80053; 80185; 80320; 80329; 82962; 83735; 83880; 84484; 85025; 85610; 85730; 87426; 93005; 96365; 96372; C9113; G0378; J7060